=== PATIENT | male | born 1950 | race Caucasian/White ===

== ENCOUNTER 2018-06-14 13:24 | Emergency (ER) | payer MEDICARE ==
[~2018-06-14] VITALS: Ht 182.9 cm; Wt 90.7 kg
[~2018-06-14 13:24] MED LIST: ALBU90OI6 INH; CARV25 PO; DOCU100 PO; FOLI1 PO; HYDR1TAB94 PO; LEVO750 PO; LIDO700A20 TOP; LOSA25 PO; PYRI100 PO; ROBITUSSIN COU237 ML PO; SPIR25 PO; THIA100 PO; XARELTO20 MG PO
[2018-06-14] MEDS ORDERED: ELIQUIS5 MG PO (13:47)
[2018-06-14 14:05] LABS: BASOPHILS ABSOLUTE AUTO 0.07 K/mm3 (0.00-0.23); BASOPHILS PERCENT AUTO 1 % (0-2); EOSINOPHILS ABSOLUTE AUTO 0.04 K/mm3 (0.00-0.68); EOSINOPHILS PERCENT AUTO 1 % (0-6); Hemoglobin 17.2 g/dL (13.5-17.5); IMMATURE GRAN ABSOLUTE AUTO 0.04 K/mm3 (0.00-0.10); IMMATURE GRAN PERCENT AUTO 1 % (0-1); LYMPHOCYTES ABSOLUTE AUTO 2.13 K/mm3 (0.84-5.20); LYMPHOCYTES PERCENT AUTO 25 % (21-46); MONOCYTES PERCENT AUTO 9 % (4-13); Mean Corpuscular HGB Conc 33.1 g/dL (31.5-36.5); Mean Corpuscular Volume 106 fL (80-100); Mean Platelet Volume 9.2 fL (9.1-12.4); NEUTROPHILS ABSOLUTE AUTO 5.44 K/mm3 (1.96-9.15); NEUTROPHILS PERCENT AUTO 64 % (41-73); Platelet Count 251 K/mm3 (150-400); RDW Coefficient Variation 14.1 % (11.7-14.2); RDW Standard Deviation 55.4 fL (35.1-46.3); Red Blood Cell Count 4.91 M/mm3 (4.30-5.90); White Blood Cell Count 8.52 K/mm3 (4.00-11.30)
[2018-06-14 14:17] LABS: Alanine Aminotransfer (ALT/SGP 28 U/L (12-78); Albumin, Blood 3.8 g/dL (3.4-5.0); Alk Phos 86 U/L (50-136); Anion Gap 9 mmol/L (6-16); Aspartate Aminotrans (AST/SGOT 24 U/L (12-37); Bilirubin, Total 1.3 mg/dL (0.1-1.0); Blood Urea Nitrogen 12 mg/dL (8-24); Bun/Creatinine Ratio 13.8 (12.0-20.0); CO2, Blood 24 mmol/L (21-32); Calcium, Blood 8.6 mg/dL (8.5-10.1); Chloride, Blood 101 mmol/L (98-108); Creatinine, Blood 0.87 mg/dL (0.60-1.20); Globulin, Blood 3.8 g/dL (2.2-4.0); Glomerular Filtration Rate >60 (60-); Glucose, Blood 153 mg/dL (70-99); Potassium, Blood 4.6 mmol/L (3.5-5.5); Sodium, Blood 134 mmol/L (136-145); Total Protein, Blood 7.6 g/dL (6.4-8.2); Troponin I <0.015 ng/mL (0.000-0.040)
[2018-06-14 14:18] LABS: Source, Urine Clean Catch
[2018-06-14 14:41] LABS: Appearance, Urine Clear (Clear); Bilirubin, Urine Neg (Neg); Blood, Urine Neg (Neg); Color, Urine Yellow (P-Yellow); Glucose Qualitative, Urine Neg (Neg); Ketones, Urine 1+ (Neg); Leukocyte Esterase, Urine 1+ (Neg); Nitrite, Urine Pos (Neg); Protein, Urine Neg (Neg); Urobilinogen, Urine 1+ (Normal)
[2018-06-14 14:48] LABS: Bacteria Few /hpf; Red Blood Cells, Urine Not Seen /hpf (0-2); Squamous Epithelial Cells Few /hpf (Few)
[2018-06-14] MEDS ORDERED: Bactrim Ds Tab1 EACH PO (14:53)
== END 2018-06-14 15:18 | disposition home or self-care (01) ==
LOC: ER 13:24
PROVIDERS: Emergency Medicine
DX: I48.91 Unspecified atrial fibrillation (principal); R55 Syncope and collapse; N39.0 Urinary tract infection, site not specified; F17.210 Nicotine dependence, cigarettes, uncomplicated; Z88.0 Allergy status to penicillin; Z88.5 Allergy status to narcotic agent; Z79.899 Other long term (current) drug therapy; Z98.890 Other specified postprocedural states
CPT/HCPCS: 36415; 71045; 80053; 81001; 83880; 84484; 85025; 87077; 87086; 87186; 93005; 93010; 99284-25